=== PATIENT | female | born 1960 | race Caucasian/White ===

== ENCOUNTER 2022-06-19 08:15 | Outpatient (RCR) | payer OTHER, SELFPAY | END 2022-08-23 11:22 | disposition home or self-care (01) | PROVIDERS: PCP Internal Medicine; Visit Provider Orthopaedic Surgery | DX: M25.552 Pain in left hip (principal); Z96.642 Presence of left artificial hip joint; Z51.89 Encounter for other specified aftercare | CPT/HCPCS: 97110 ==

== ENCOUNTER 2022-08-16 17:10 | Outpatient (CLI) | payer OTHER, SELFPAY ==
[2022-08-16 10:23] LABS: Chloride* 104 mmol/L (96-114); Sodium* 138 mmol/L (135-149)
[2022-08-16 10:24] LABS: Potassium* 3.5 mmol/L (3.6-5.1)
[2022-08-16 10:26] LABS: Cholesterol* 186 mg/dL (90-199); Creatinine* 0.6 mg/dL (0.5-1.5); Estimated Glomerular Filt Rate 100 ml/min
[2022-08-16 10:27] LABS: Blood Urea Nitrogen* 15 mg/dL (7-30); Calcium* 9.3 mg/dL (8.4-10.6); Carbon Dioxide* 26 mmol/L (20-32); Glucose* 97 mg/dL (60-115); HDL Cholesterol* 62 mg/dL (>=50); LDL Cholesterol Calculated 107 mg/dL (<100); Triglycerides* 83 mg/dL (40-149)
== END 2022-08-16 17:11 | disposition home or self-care (01) ==
PROVIDERS: PCP Internal Medicine; Visit Provider Internal Medicine
DX: E78.5 Hyperlipidemia, unspecified (principal); I10 Essential (primary) hypertension; E03.2 Hypothyroidism due to medicaments and other exogenous substances; F41.9 Anxiety disorder, unspecified
CPT/HCPCS: 80048; 80061; 84443

== ENCOUNTER 2022-11-07 07:04 | Outpatient (CLI) | payer OTHER, SELFPAY ==
--- NOTE | 2022-11-07 07:15 | CRLHL7_ITS ---
For Patients: As a result of the Century Cures Act, medical imaging exams and procedure reports are released immediately into your electronic medical record. You may view this report before your referring provider. If you have questions, please contact your health care provider. Indication: Pancreatic cyst Technique: MRI of the abdomen with and without contrast,DOTAREM 15 cc IV Comparison: CT dated September 14, 2021 Findings: Normal liver size and contour. No fat or iron deposition within the liver. No suspicious hepatic lesions. Hepatic and portal veins appear patent. Normal gallbladder. No biliary dilatation. No significant abnormality of the adrenal glands, kidneys, spleen or duodenum. Small hiatal hernia. The punctate hypoattenuating focus seen in the pancreatic body on prior CT is not identified on MRI. There are no significant cystic or solid lesions within the pancreas. The pancreatic duct is normal in caliber. There is a pancreatic divisum (series 9, image [id number]). Normal course and caliber of the abdominal aorta and the IVC. Atherosclerotic disease of the abdominal aorta. The aortic side branches appear patent. There is no lymphadenopathy. The body wall and bones are grossly unremarkable. Impression: No cystic pancreatic lesion or concerning pancreatic abnormality identified. The tiny hypoattenuating focus in the pancreatic body mentioned in the prior CT report may have represented interdigitating mesenteric fat. Dictated by Amor Abernathy MD @ 11/10/2022 6:58:48 PM (Electronically Signed)
== END 2022-11-07 07:05 | disposition home or self-care (01) ==
LOC: MRI 07:05
PROVIDERS: PCP Internal Medicine; Visit Provider Internal Medicine
DX: K86.2 Cyst of pancreas (principal)
CPT/HCPCS: 74183; A9575

== ENCOUNTER 2022-12-18 08:03 | Outpatient (CLI) | payer OTHER, SELFPAY ==
--- NOTE | 2022-12-18 08:15 | CRLHL7_ITS ---
For Patients: As a result of the Century Cures Act, medical imaging exams and procedure reports are released immediately into your electronic medical record. You may view this report before your referring provider. If you have questions, please contact your health care provider. BILATERAL SCREENING MAMMOGRAM WITH COMPUTER-AIDED DETECTION AND TOMOSYNTHESIS TECHNIQUE: CC and MLO views were obtained. These mammographic images have been obtained using full-field digital technique. These mammographic images were interpreted with the benefit of computer-aided detection. Breast Tomosynthesis was used in this interpretation. COMPARISON FILM: Diag rt 11/17/20, 11/01/20, 01/12/19 [facility]. FINDINGS: There are scattered areas of fibroglandular density IMPRESSION: There is no radiographic evidence for malignancy. ASSESSMENT: BI-RADS Category 1: Negative RECOMMENDATION: Routine screening mammogram in 1 year. A lay language report of this examination will be provided to the patient. Dipesh Charles M.D. Diagnostic Radiologist [email or web address] CASPER/Dictated by: Dipesh Charles MD @ 12/18/2022 12:26:00 PM (Electronically Signed)
== END 2022-12-18 08:04 | disposition home or self-care (01) ==
PROVIDERS: PCP Internal Medicine; Visit Provider Internal Medicine
DX: Z12.31 Encounter for screening mammogram for malignant neoplasm of breast (principal)
CPT/HCPCS: 77063; 77067

== ENCOUNTER 2023-07-31 13:15 | Outpatient (RCR) | payer OTHER, MEDICARE, SELFPAY | END 2023-10-08 10:50 | disposition home or self-care (01) | PROVIDERS: PCP Internal Medicine; Visit Provider Orthopaedic Surgery | DX: M75.52 Bursitis of left shoulder (principal); Z51.89 Encounter for other specified aftercare | CPT/HCPCS: 97110; 97140; 97161 ==

== ENCOUNTER 2023-09-19 08:25 | Outpatient (CLI) | payer OTHER, MEDICARE, SELFPAY | END 2023-09-19 08:26 | disposition home or self-care (01) | LOC: NFLDREF 09-24 06:19 | PROVIDERS: PCP Internal Medicine; Referring Provider Internal Medicine; Visit Provider Internal Medicine | DX: I10 Essential (primary) hypertension (principal); E03.2 Hypothyroidism due to medicaments and other exogenous substances; E78.5 Hyperlipidemia, unspecified | CPT/HCPCS: 80048; 80061; 82306; 84439; 84443 ==

== ENCOUNTER 2023-10-30 13:47 | Outpatient (CLI) | payer OTHER, MEDICARE, SELFPAY ==
--- NOTE | 2023-10-30 14:00 | CRLHL7_ITS ---
For Patients: As a result of the Century Cures Act, medical imaging exams and procedure reports are released immediately into your electronic medical record. You may view this report before your referring provider. If you have questions, please contact your health care provider. DXA BONE MINERAL DENSITY STUDY Current height (in): 62.0. Weight (lb): 170.0. Menopause age: 38. Ethnicity: White. Reason for exam: Screening. Asymptomatic menopausal state. 1. Have you had a previous hip or vertebral fracture? No. 2. Have you had any fractures during your adult life which did not result from significant trauma (e.g., auto accident)? No. 3. Did either of your parents have a hip fracture? No. 4. Do you smoke? No. 5. Have you ever taken Glucocorticoids? No. 6. Do you have rheumatoid arthritis? No. 7. Do you have secondary osteoporosis? No. 8. Do you drink 3 or more alcoholic drinks per day? No. 9. Are you being treated for osteoporosis? No. 10. Have you ever taken any of the following medications: Actonel, Evista, Fosamax, Miacalcin, Reclast, Boniva, Forteo, HRT (i.e. estrogen/hormone therapy), Protelos, Prolia, Vitamin D, Calcium, other ??? please specify. ANSWER: Yes, vitamin D. 11. Do you have any of the following medical conditions: Anorexia or bulimia, asthma or emphysema, end stage renal disease, hyperparathyroidism, any seizure disorders, cancer, inflammatory bowel diseases, hysterectomy, other ??? please specify. ANSWER: No. 12. What was your maximum height (inches)? 62. 13. Do you perform weight bearing exercise regularly? No. 14. Do you regularly consume dairy products? Yes. 15. Do you drink caffeinated beverages? Yes. 16. At what age did your period start? 9. 17. Are you premenopausal? No. 18. How many full-term pregnancies have you had? 0. 19. Have you ever missed your period for more than 6 months in a row (not including or menopause)? No. TECHNIQUE: Bone mineral density study was performed using the payever. FINDINGS: The results of the study expressed as bone mineral density (BMD) are as follows: Lumbar spine L1 to L4: BMD: 0.938 g/cm2. T-score: -1.0. Z-score: 0.8. Neck Right: BMD: 0.748 g/cm2. T-score: -0.9. Z-score: 0.6. Total Right: BMD: 0.941 g/cm2. T-score: 0.0. Z-score: 1.2. IMPRESSION: Normal bone density. Dipesh Charles M.D. Diagnostic Radiologist [email or web address] Transcribed: 9:35 am DW/Dictated by: Dipesh Charles MD @ 11/03/2023 6:38:00 AM (Electronically Signed)
== END 2023-10-30 13:48 | disposition home or self-care (01) ==
LOC: RAD 13:48
PROVIDERS: PCP Internal Medicine; Visit Provider Internal Medicine
DX: Z13.820 Encounter for screening for osteoporosis (principal); Z78.0 Asymptomatic menopausal state
CPT/HCPCS: 77080

== ENCOUNTER 2024-02-24 09:55 | Outpatient (CLI) | payer MEDICARE, BC, SELFPAY | END 2024-02-24 09:56 | disposition home or self-care (01) | LOC: NFLDREF 14:49 | PROVIDERS: PCP Internal Medicine; Visit Provider Internal Medicine | DX: Z01.818 Encounter for other preprocedural examination (principal) | CPT/HCPCS: 80048 ==

== ENCOUNTER 2024-03-11 09:02 | Day surgery (SDC) | payer MEDICARE, BC, SELFPAY ==
[2024-03-11] VITALS (13 sets, daily range): BP systolic 117–159; BP diastolic 58–96; PULSE 65–96; RESP 14–18; TEMP 36.1–36.7; O2SAT 91–100; BMI 32.5
[2024-03-11] MEDS: MIDAZOLAM HCL 1 MG/ML inj IVP (07:52)
[2024-03-11] MEDS: CELECOXIB 200 MG CAPSULE PO (07:52)
[2024-03-11] MEDS: fentaNYL 100 MCG/2 ML inj IVP (07:52)
[2024-03-11] MEDS: OXYCODONE (CR) 10 MG TAB.ER.12H PO (07:52)
[2024-03-11] MEDS: ACETAMINOPHEN 500 MG TABLET 1000 MG PO (07:52)
[2024-03-11] MEDS: LACTATED RINGERS 1000 ML 1,000 ML 100 ML IV ×2 (07:55→10:55)
--- OUTSIDE RECORDS SUMMARY | 2024-03-11 09:03 | XMS_ITS | Referral Summary ---
Author Name Unknown Organization [facility] Address [address] [place] [id number] Care Team Providers Care Gardening Instructor Name Role Phone Aleida Perdomo MD Primary Care Provider [phone] Allergies Active Allergy Reactions Criticality Noted Date Comments Sulfa Antibiotics Nausea and Vomiting,Rash,Cough Low 01/27/2021 Medications Medication Sig Dispensed Refills Start Date End Date Status LORazepam (ATIVAN) 1 MG tablet Take 0.25-1 mg by mouth 2 times daily Active triamterene-HCTZ (MAXZIDE-25) 37.5-25 MG tablet Take 1 tablet by mouth daily Active valACYclovir (VALTREX) 500 MG tablet Take 500 mg by mouth 2 times daily Active venlafaxine (EFFEXOR) 75 MG tablet Take 75 mg by mouth daily Active vitamin C (ASCORBIC ACID) 250 MG TABS tablet Take 250 mg by mouth daily Active atorvastatin (LIPITOR) 10 MG tablet Take 20 mg by mouth daily Active lisinopril (ZESTRIL) 10 MG tablet Take 10 mg by mouth daily Active levothyroxine (SYNTHROID/LEVOTHROID ) 75 MCG tablet Take 75 mcg by mouth daily Active aspirin 81 MG EC tablet Take 81 mg by mouth daily Active omega 3 1000 MG CAPS Take 1 capsule by mouth daily Active erythromycin (ROMYCIN) 5 MG/GM ophthalmic ointmentIndications:P tosis of both eyelids Apply topically 3 times daily Apply thin ribbon to upper eyelid crease incisions 3 x per day 3.5 g 1 01/30/2021 Active Social History Tobacco Use Types Packs/Day Years Used Date Smoking Tobacco: Former Smokeless Tobacco: Never Comments:quit 18 years ago Adolescent Education Answer Date Record ed Getting School Help Needed Not on file 08/31 Sex and Gender Information Value Date Recorded Sex Assigned at Not on file Gender Identity Not on file Sexual Orientation Not on file Last Filed Vital Signs Vital Sign Reading Time Taken Comments Blood Pressure 113/76 01/30/2021 9:20 AM TECHNICAL MAINTENANCE TECHNICIAN Pulse 70 01/30/2021 9:00 AM TECHNICAL MAINTENANCE TECHNICIAN Temperature 36.2 ??C (97.1 ??F) 01/30/2021 8:31 AM CS T Respiratory Rate 14 01/30/2021 9:20 AM TECHNICAL MAINTENANCE TECHNICIAN Oxygen Saturation 99% 01/30/2021 9:20 AM TECHNICAL MAINTENANCE TECHNICIAN Inhaled Oxygen Concentration - - Weight 72.1 kg (159 lb) 01/30/2021 6:00 AM TECHNICAL MAINTENANCE TECHNICIAN Height 157.5 cm (5' 2) 01/30/2021 6:00 AM TECHNICAL MAINTENANCE TECHNICIAN Body Mass Index 29.08 01/30/2021 6:00 AM TECHNICAL MAINTENANCE TECHNICIAN Plan of Treatment Not on file Care Teams Gardening Instructor Relationship Specialty Start Date End Date Aleida Perdomo MD [facility] & [address] [address] PCP - General Internal Medicine 01/16/21
--- OUTSIDE RECORDS SUMMARY | 2024-03-11 09:03 | XMS_ITS | Clinical Summary ---
Author Name Unknown Organization [facility] Address [address] [place] [address] Care Team Providers Care Office Services Coordinator Name Role Phone Aleida Perdomo MD Primary Care Provider [phone] Allergies Active Allergy Reactions Criticality Noted Date [...] Comments Blood Pressure 113/76 01/30/2021 9:20 AM FORMS DESIGNER Pulse 70 01/30/2021 9:00 AM FORMS DESIGNER Temperature 36.2 ??C (97.1 ??F) 01/30/2021 8:31 AM CS T Respiratory Rate 14 01/30/2021 9:20 AM FORMS DESIGNER Oxygen Saturation 99% 01/30/2021 9:20 AM FORMS DESIGNER Inhaled Oxygen Concentration - - Weight 72.1 kg (159 lb) 01/30/2021 6:00 AM FORMS DESIGNER Height 157.5 cm (5' 2) 01/30/2021 6:00 AM FORMS DESIGNER Body Mass Index 29.08 01/30/2021 6:00 AM FORMS DESIGNER Plan of Treatment Health Maintenance Due Date Last Done Comments ADVANCE CARE PLANNING 1958 ANNUAL REVIEW OF HM ORDERS 1958 CT COLONOGRAPHY 1958 DEXA 1958 FIT 1958 FLEX SIG 1958 GLUCOSE 1958 LIPID 1958 MAMMO SCREENING 1958 TSH W/FREE T4 REFLEX 1958 sDNA (Cologuard) 1958 COLONOSCOPY 1968 COLORECTAL CANCER SCREENING 1968 HIV SCREENING 1973 HEPATITIS C SCREENING 1976 LUNG CANCER SCREENING 2008 DTAP/TDAP/TD IMMUNIZATION (1 - Tdap) 01/06/2016 01/05/2016 RSV VACCINE ( & 60+) (1 - 1-dose 60+ series) 2018 FALL RISK ASSESSMENT 2023 MEDICARE ANNUAL WELLNESS VISIT 2023 Pneumococcal Vaccine: 65+ Years (1 of 1 - PCV) 2023 COVID-19 Vaccine (3 - 2022- season) 2023 12/12/2020, 11/22/2020 INFLUENZA VACCINE (#1) 2023 9, 12/15/2018, 10/01/2017, Additional history exists PHQ-2 (once per calendar year) 2023 ZOSTER IMMUNIZATION Completed 03/30/2019, 9 HPV IMMUNIZATION Aged Out No longer e ligible based on patient's age to complete this topic IPV IMMUNIZATION Aged Out No longer e ligible based on patient's age to complete this topic MENINGITIS IMMUNIZATION Aged Out No l onger eligible based on patient's age to complete this topic RSV MONOCLONAL ANTIBODY Aged Out No l onger eligible based on patient's age to complete this topic Care Teams Office Services Coordinator Relationship Specialty Start Date End Date Aleida Perdomo MD [address] [address] PCP - General Internal Medicine 01/16/21
[2024-03-11] MEDS: SODIUM CHLORIDE 0.9 % (FLUSH) 10 ML SYRINGE IVF (09:36)
--- NOTE | 2024-03-11 09:45 | SUR.PREOP ---
TIME?OUT:?0935 PT/RN/MDA?VERIFICATION?OF?SURGICAL?SITE,?PROCEDURE,?AND?CONSENT OBTAINED?PRIOR?TO?INVASIVE?PROCEDURE.0935left shoulder kelsietr [facility]
[2024-03-11] MEDS: CEFAZOLIN 2 GM INJ IVP (10:15)
[2024-03-11] MEDS: EPINEPHrine 1 MG in SODIUM CHLORIDE IRRIG SOLUTION 3,000 ML 9003 MG IRRIGATION ×3 (10:45→11:40)
--- NOTE | 2024-03-11 11:46 | P.ORPRC_ITS ---
Procedure Note Date of procedure: 03/11/24 Procedure: PREOPERATIVE DIAGNOSIS: Left shoulder rotator cuff tear, AC joint arthrosis POSTOPERATIVE DIAGNOSIS: Left shoulder rotator cuff tear, AC joint arthrosis NAME OF OPERATION: Left shoulder arthroscopic subacromial decompression, distal clavicle excision, mini open rotator cuff repair SURGEON: Dom Rodriguez MD BROACHING MACHINE REPAIRER: Felicita Acosta PA-C ANESTHESIA: Supraclavicular block plus general endotracheal ESTIMATED BLOOD LOSS: 20 mL COMPLICATIONS: None SPECIMENS: None DRAINS: None PREOPERATIVE ANTIBIOTICS: Ancef 2 grams INDICATIONS: The patient is a 63-year-old with a history of left shoulder pain secondary to the above diagnoses. Despite appropriate non operative management, they continue to have symptoms. Operative intervention was recommended. The risks, benefits and expected outcomes were discussed in detail. These included but were not limited to: Infection, bleeding, injury to blood vessel or nerve, venous thromboembolism. All questions were answered to their satisfaction. PROCEDURE: A supraclavicular block was placed by Anesthesia. General anesthesia was administered. The patient was placed in the high beach chair position. The left shoulder was prepped and draped in the usual sterile fashion. The glenohumeral joint was infiltrated with 20 mL of normal saline with epinephrine. The posterior portal was established, the arthroscope was introduced. The anterior portal was established, Diagnostic arthroscopy was performed with findings as follows: The biceps and biceps anchor are intact. The anterior, posterior and superior labrum are normal. Articular surfaces on the humeral head and glenoid are normal. There are no loose bodies. There is a small, high-grade partial-thickness tear of the undersurface of the insertion of the supraspinatus. There is some longitudinal splitting of the deep surface of the subscap. The superior glenohumeral ligament is quite degenerative. The undersurface of the supraspinatus and subscap were debrided with the shaver The arthroscope was placed in the subacromial space, the lateral portal was established. The Arthrex Cranberry was used to dissect the acromion free. The CA ligament was recessed off the anterior acromion, the AC joint was exposed. The acromioplasty was performed with the bur in the posterior portal. The bur was then placed in the lateral portal and the lateral and anterior aspect of the acromion were resected. The undersurface of the distal clavicle was resected through the lateral portal. Finally, the bur was placed in the anterior portal and the remainder of the distal clavicle was resected for a total of 10 mm. An accessory anterolateral portal was placed. The subacromial/subdeltoid bursa was aggressively debrided. The bursal surface of the rotator cuff is intact. Arthroscopic instruments were removed. The accessory anterolateral portal was extended proximally and distally, subcutaneous dissection was taken with electrocautery to the deltoid. The deltoid was divided in line with its fibers. The static retractor was placed. The subacromial/subdeltoid bursa was debrided with the Schafer scissors. The few remaining fibers of the bursal surface of the insertion of supraspinatus were released with the scalpel. This was taken posterior, to the anterior aspect of the infraspinatus which is intact. It was taken medial to the biceps to include release of the superior glenohumeral ligament and superior aspect of subscap insertion. The greater and lesser tuberosities were debrided to punctate bleeding bone using the arthroscopic bur. An Arthrex BioComposite corkscrew anchor was placed just medial to the biceps in the superior aspect of lesser tuberosity. All 4 limbs were passed through the upper border of the subscap with the scorpion. An Arthrex BioComposite SwiveLock anchor was placed in the greater tuberosity, just lateral to the biceps, just off the articular surface. Both limbs of the FiberWire and fiber tape were passed using the scorpion. A fiber link was placed in the leading edge of the rotator cuff. We tied the 2 central FiberWire sutures over the rotator cuff. We then proceeded with a lateral row SwiveLock anchor incorporating the medial row FiberTape and fiber link into the lateral row anchor. We passed the FiberWire suture in the eyelet of the lateral row anchor through the leading edge of the supraspinatus, tying it with a simple knot. Finally, we tied the 4 sutures over the anterior aspect of the subscap to complete the repair. There was a small longitudinal split in the supraspinatus, infraspinatus interval, at the musculotendinous junction. This was closed with 2 x # 2 FiberWire sutures in an interrupted, tbecws-yp-magni fashion. This provides an anatomic, watertight repair of the rotator cuff. There is no tension on the repair with the shoulder at 0? abduction. The wound was irrigated with normal saline off the pump. The deltoid was repaired with an 0 Vicryl in an interrupted [id number]-ae-ecncn fashion. Subcutaneous tissues were closed with a 3-0 Vicryl. Skin was closed with a 3-0 Monocryl in a subcuticular fashion. A dry dressing and sling were applied. Sponge and needle counts were correct x2. The patient tolerated the procedure well. There were no apparent complications. They were carefully transferred to the hospital bed and taken to the postanesthesia care unit in satisfactory condition. PLAN: The patient will be discharged to home. No active range of motion of the shoulder will be allowed for 6 weeks postoperatively. They can work on active range of motion of the elbow, wrist and fingers. They will follow up in the office next week for a wound check and an AP and transscapular Y-view of the shoulder prior to being seen.
--- NOTE | 2024-03-11 12:11 | P.NB_ITS ---
Nerve Block Nerve Block Time Seen by Provider: 09:41 Date Seen: 03/11/24 Type of block requested by surgeon for post-operative analgesia: supraclavicular Side: left Time out performed: Yes Verification of patient name: Yes Verification of date of : Yes Site marking: site marked Name of person performing procedure: Samuel Continuous monitoring Was continuous monitoring of O2 sat, B/P, engagement lead, recorded every 15 minutes?: Yes Procedure Checklist: sterile prep, needles and gloves Ultrasound guided. Images saved: Yes Medications given in 5ml increments after negative aspiration: Ropivicaine %: 0.5 mL: 20 Needle gauge: 22 Decadron (mg): 10 Precedex (mcg): 25 Patient tolerated procedure well: Yes Block Charges Block Charge (with Pro Fee): Brachial Plexus Use of Ultrasound Machine for Block: Yes- US Guidance/pain block
--- NOTE | 2024-03-11 12:12 | W.ANESCHARGE ---
Anesthesia Charges Start Date/Time Anesthesia Start Date: 03/11/24 Anesthesia Start Time: 10:00 Stop Date/Time Anesthesia Stop Date: 03/11/24 Anesthesia Stop Time: 12:16
--- NOTE | 2024-03-11 12:18 | W.ANESCHARGE ---
Anesthesia Charges Start Date/Time Anesthesia Start Date: 03/11/24 Anesthesia Start Time: 10:00 Stop Date/Time Anesthesia Stop Date: 03/11/24 Anesthesia Stop Time: 12:16
--- NOTE | 2024-03-11 12:42 | SUR.PHASEI ---
patient meets pacu d/c criteria
== END 2024-03-11 13:28 | disposition home or self-care (01) ==
LOC: OR 09:02
PROVIDERS: PCP Internal Medicine; Visit Provider Orthopaedic Surgery
PROC: (CPT 23412; principal; 2024-03-11 10:15)
DX: M75.102 Unspecified rotator cuff tear or rupture of left shoulder, not specified as traumatic (principal); M19.012 Primary osteoarthritis, left shoulder; G89.18 Other acute postprocedural pain
CPT/HCPCS: 29826; 29824; 23412; 01630; 64415; 76942; A9270; C1713; J0171; J0330; J0690; J1100; J2250; J2371; J2405; J2704; J2795; J3010; J7120

== ENCOUNTER 2024-05-31 10:30 | Outpatient (RCR) | payer MEDICARE, BC, SELFPAY ==
--- NOTE | 2024-05-31 11:03 | PT.OPDNX ---
PT [facility] Outpatient Daily Note PROGRESS NOTE REQUIRES SIGNATURE PT [facility] Outpatient Daily Note Start: 04/23/24 07:44 Freq: Status: Active Protocol: Document 05/31/24 07:25 SEA (Rec: 05/31/24 11:02 SEA [email or web address]) E-signed By Carlos Torres DPT PT OP Daily Progress Note Visit Information Note Type Daily Note,Recert/Progress Note Visit Number [id number] Insurance Information Recert Due Date 08/29/24 Insurance Name Medicare B Medical Diagnosis left shoulder arthroscopic SAD , DCE, and mini open RCR (03/11)~ 8.5 weeks post op Treating Diagnosis left shoulder pain stiffness of shoulder muscle weakness Referring MD rhoda winter Subjective Subjective Olga comes into clinic feeling like shoulder is doing well overall without much issue. feels Pain Comments 5-8/10 worst with movement 0/10 rest Precautions Treatment Precautions/Contraindications anxiety htn hup replacements progress AROM Home Exercise Home Exercise Comments Access Code: [email or web address] URL: [email or web address] Room Choice/ Date: 05/05/2024 Objective Other/Pertinent Objective SHOULDER AROM WNL on R Flexion: L 159 Abduction: L 151 Internal Rotation: L T10 External Rotation: L 58 Functional Test Performed & Score Total SPADI Score: 28 / 130 = 21.5 %-05/31/24 Patient Instructed in Risks/Benefits Yes Therapeutic Exercise Therapeutic Exercise Minutes (minutes) 32 Therapeutic Exercise: To Restore ube x 5 min Functional Status wall walks flexion x 10, scaption x 10 abd x 10 #1 scaption 2x 10-15, 1#1-2 cabinet lifts 3x 10 #1 alphabet 2x 15 Treatment Minutes Untimed Code Treatment Minutes 5 Timed Code Treatment Minutes 32 Total Treatment Time 37 Billing Units Therapeutic Exercise Units 2 Assessment/Impression Assessment/Impression Patient is a 64 year old female that presents with L RCR. Patient reports 90% improvement with skilled physical therapy services. Scoring SPADI Score: 28 / 130 = 21.5 %-05/31/24. Patient has shown improvement in PT demonstrating decreased/ controlled pain, increased range of motion, increased strength, and increased tolerance to activity. Patient continues to present with low to moderate level pain, decreased shoulder abduction AROM, decreased strength, and decreased tolerance activities that require appointments away from the body. Patient would benefit from continued skilled PT services to address these issues and to maximize function. Plan of Care Physical Therapy Goals GOALS Pt will be independent with HEP within 12-14 weeks to allow for independence and continued improvement past formal therapy nm Patient will demonstrate/ report ability to reach to 150 + degrees shoulder flexion and abduction with pain level <1/ 10, to allow for tip printer, hygiene, work within 12-14 weeks-met Pt will be able to demonstrate / report ability to lift #15- 20 from floor to counter height without pain within 12- 14 weeks, for household and work activity. NM Daily Plan of Care Continue per POC Discharge Note Date of First Visit for Therapy 04/23/24 Initial Primary Functional Limitations lifting reaching Initial Pain Level 8/10
== END 2024-09-28 23:59 | disposition home or self-care (01) ==
PROVIDERS: PCP Internal Medicine; Visit Provider Physician Assistant Surgical
DX: Z98.890 Other specified postprocedural states (principal); M25.512 Pain in left shoulder; M25.619 Stiffness of unspecified shoulder, not elsewhere classified; Z51.89 Encounter for other specified aftercare
CPT/HCPCS: 97110; 97140; 97161

== ENCOUNTER 2024-08-27 12:26 | Emergency (ER) | payer MEDICARE, BC, SELFPAY ==
[2024-08-27 12:30] VITALS: BP 133/88; PULSE 106; RESP 18; TEMP 35.7; O2SAT 95; BMI 32.0
--- NOTE | 2024-08-27 12:48 | ED_ITS ---
HPI - General Adult General Date Seen: 08/27/24 Chief complaint: Lower Extremity Swelling Stated complaint: leg weakness Time Seen by Provider: 08/27/24 12:27 Source: patient Mode of arrival: ambulatory Limitations: no limitations History of Present Illness HPI narrative: Patient is a 64-year-old female presenting to the emergency department for leg weakness. She states she has been chronic right leg and foot pain for the past month. She has also noticed increased swelling to the right foot mostly on the dorsal aspect. Pain seems to be on dorsal aspect and medial aspect of the foot. Pain is only there with movement and she states she spends long hours work standing. This also started to have some pain in her left foot and right hip. She was seen previously for it and was given steroids for possible tendinitis about 2 months ago. She had some improvements at that time but symptoms returned. She now states for the past 2 days she was feeling diaphoretic, fatigued, lightheaded and overall not feeling well. She is concerned could be heart related her she came to emergency department for evaluation. No history of heart disease. Denies any fevers. Denies chest pain, shortness of breath, abdominal pain, nausea/vomiting, headache. 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 Related Data Home Medications ?Medication ?Instructions ?Recorded ?Confirmed yssxbutg-[id number] 8 mg-folic 400 1 tab PO QDAY 07/24/23 08/04/24 mcg-K 50 mcg-lutein 300 mcg tablet (Centrum Silver Women) cholecalciferol (vitamin D3) 25 25 mcg PO QDAY 09/25/23 08/04/24 mcg (1,000 unit) capsule Previous Rx's ?Medication ?Instructions ?Recorded levothyroxine 75 mcg tablet 75 mcg PO QDAY #90 tabs 11/28/23 triamterene 37.5 1 tab PO DAILY #90 tabs 11/28/23 mg-hydrochlorothiazide 25 mg tablet venlafaxine 75 mg capsule,extended 75 mg PO DAILY #90 caps 11/28/23 release 24 hr lorazepam 1 mg tablet 0.5 mg (1/2 x 1 mg) PO .Bedtime 06/21/24 #30 tabs valacyclovir 500 mg tablet 500 mg PO DAILY #90 tabs 07/23/24 prednisone 20 mg tablet 20 mg PO BID #10 tabs 08/04/24 atorvastatin 20 mg tablet 20 mg PO .Bedtime #90 tabs 08/13/24 valsartan 40 mg tablet 40 mg PO QDAY #90 tabs 08/13/24 Allergies Allergy/AdvReac Type Severity Reaction Status Date / Time Sulfa (Sulfonamide Allergy Verified 08/27/24 12:30 Antibiotics) Review of Systems Status of ROS: Reports: 10 or more systems reviewed and unremarkable except as noted in History and below PFSH PFSH Medical History History of Graves' disease ?Z86.39 - Personal history of other endocrine, nutritional and metabolic disease (ICD-10) History of diverticulitis (02/17/19) ?Z87.19 - Personal history of other diseases of the digestive system (ICD-10) History of Clostridioides difficile infection (03/03/19) ?Z86.19 - Personal history of other infectious and parasitic diseases (ICD- 10) Surgical History History of arthroscopy of left shoulder (03/11/24) ?Z98.890 - Other specified postprocedural states (ICD-10) History of total hip replacement (05/09/22) ?Z96.649 - Presence of unspecified artificial hip joint (ICD-10) History of laparoscopy ?Z98.890 - Other specified postprocedural states (ICD-10) History of fracture of radius (05/09/15) ?Z87.81 - Personal history of (healed) traumatic fracture (ICD-10) History of esophagogastroduodenoscopy (EGD) (09/29/08) ?Z98.890 - Other specified postprocedural states (ICD-10) History of blepharoplasty (01/2021) ?Z98.890 - Other specified postprocedural states (ICD-10) History of biopsy ?Z98.890 - Other specified postprocedural states (ICD-10) History of appendectomy (08/2021) ?Z90.49 - Acquired absence of other specified parts of digestive tract (ICD- 10) Social History Smoking Status: Former smoker What tobacco products do you use: cigarettes Smoking quit date/years: >15 years ago Do you use any of these nicotine containing products: None Second hand tobacco smoke exposure: No How often do you have a drink containing alcohol: monthly or less Alcohol type: beer How many standard drinks containing alcohol do you have on a typical day: 1 or 2 How often do you have six or more drinks on one occasion: Never AUDIT-C Alcohol total score: 1 Non-prescribed substance use: denies use Caffeine: Yes Little interest or pleasure in doing things: not at all Feeling down, depressed, or hopeless: not at all Are you using contraception or practicing any form of control: No Exam Narrative: Exam Narrative: Const: Well-nourished, Well-developed, in mild distress Eyes: PERRL, no conjunctival injection, and symmetrical lids HENT: Atraumatic external nose and ears. Moist mucous membranes. Neck: Symmetric, trachea midline, No thyromegaly. CVS: RRR, No murmurs or gallops. Peripheral pulses 2+ and equal in all extremities RESP: Unlabored respiratory effort. Clear to auscultation bilaterally. GI: Nontender/Nondistended, No rebound or guarding. MSK:Extremities w/o deformity, Normal Active ROM, some mild tenderness to the dorsal aspect of the right foot into the 2nd and 3rd toes. Mild tenderness noted to the plantar aspect of the right foot just proximal to the base of the great toe Skin: Warm, Dry. No rashes or lesions. Neuro: Normal Muscle tone, No focal neurological deficits. Psych: Awake, Alert, & Oriented x3. Appropriate mood and affect. Const: Vital Signs, click to edit/add: Vital Signs - 24 hr 08/27/24 12:30 Temperature 96.2 F L Pulse Rate [Pulse Oximeter] 106 H Respiratory Rate 18 Blood Pressure [Ri ght Upper Arm] 133/88 Pulse Oximetry 95 Oxygen Delivery Me thod Room Air Course Vital Signs Vital signs: Initial Vital Signs Temperature 96.2 F L 08/27/24 12:30 Temperature Source Temporal Artery Scan 08/27/24 12:30 Pulse Rate 106 H 08/27/24 12:30 Pulse Rhythm Regular 08/27/24 12:30 Respiratory Rate 18 08/27/24 12:30 Blood Pressure 133/88 08/27/24 12:30 Blood Pressure Mean 103 08/27/24 12:30 Blood Pressure Position Sitting 08/27/24 12:30 Pulse Oximetry 95 08/27/24 12:30 Oxygen Delivery Method Room Air 08/27/24 12:30 Vital Signs Temperature 96.2 F L 08/27/24 12:30 Pulse Rate 106 H 08/27/24 12:30 Respiratory Rate 18 08/27/24 12:30 Blood Pressure 133/88 08/27/24 12:30 Pulse Oximetry 95 08/27/24 12:30 Oxygen Delivery Method Room Air 08/27/24 12:30 Temperature 96.2 F L 08/27/24 12:30 Pulse Rate 106 H 08/27/24 12:30 Respiratory Rate 18 08/27/24 12:30 Blood Pressure 133/88 08/27/24 12:30 Pulse Oximetry 95 08/27/24 12:30 Oxygen Delivery Method Room Air 08/27/24 12:30 Medical Decision Making MDM Narrative Medical decision making narrative: Patient is a 64-year-old female presenting to emergency department for multiple complaints. She is having some right lower extremity pain had seems to have been chronic over the past month. Steroids have helped previously but she does not want more steroids at this time. Offered her Toradol for pain management but she refused and states right now she was her to her Tylenol. She really had x-rays of this extremity with no abnormality seen I believe she is best suited to follow-up with orthopedics. She is also concerned she quit having his cardiac issues because she being diaphoretic, fatigued, lightheaded. While this all could be related to a viral syndrome I will do a COVID/flu, BMP, CBC, EKG and troponin. Also been ordered TSH with reflex T4 is she does have history of hypothyroidism. Lab work all returned showing no concerning abnormalities. EKG shows no concerning findings. She is feeling well at this time. I believe she is safe for discharge she is agreeable to this plan. Lab Data Labs: Lab Results 08/27/24 08/27/24 08/27/24 Range/Units 12:46 12:53 12:58 WBC 5.53 (4.50-11.00) K/uL RBC 4.11 (4.00-5.20) m/uL Hgb 13.2 (12.0-16.0) gm/dL Hct 38.5 (33.0-51.0) % MCV 94 (80-100) fL MCH 32 (26-34) pg MCHC 34 (32-36) gm/dL RDW Coeff of Whitney 13.2 (11.5-15.5) % Plt Count 267 (140-440) K/uL Neut % (Auto) 58.8 (42.0-72.0) % Lymph % (Auto) 32.5 (20-44) % Giles % (Auto) 6.9 (0.0-11.0) % Eos % (Auto) 1.4 (0.0-7.0) % Baso % (Auto) 0.4 (0.0-3.0) % Neut # (Auto) 3.25 (1.7-7.0) K/uL Lymph # (Auto) 1.80 (0.90-2.90) K/uL Giles # (Auto) 0.40 (0.00-0.90) K/UL Eos # (Auto) 0.08 (0.00-0.50) K/uL Baso # (Auto) 0.02 (0.00-0.30) K/uL Abs Immat Gran (auto) 0.00 (0.00-0.30) K/uL Imm/Tot Granulo (auto) 0.0 % Sodium 138 (135-149) mmol/L Potassium 3.3 L (3.6-5.1) mmol/L Chloride 101 (96-114) mmol/L Carbon Dioxide 25 (20-32) mmol/L Anion Gap 12 (7-15) mEq/L BUN 15 (7-30) mg/dL Creatinine 0.6 (0.5-1.5) mg/dL Estimated Creat Clear 43.77 Estimated GFR 99 ml/min Glucose 95 (60-115) mg/dL Calcium 9.9 (8.4-10.6) mg/dL TSH 0.045 L (0.270-4.200) uIU/mL Free T4 1.09 (0.70-1.85) ng/dL SARS-CoV-2 (PCR) Negative SARS-CoV-2 (Negative) Influenza Type A (PCR) Negative PCR FLU A (Negative) Influenza Type B (PCR) Negative PCR FLU B (Negative) POC Troponin I 0.00 L (0.01-0.04) ng/ml ECG Data Attestation: I personally reviewed and interpreted this ECG as follows: Prior ECG tracings: available for review Interpretation: Normal sinus rhythm 3 of 80 beats per minute, normal intervals, normal axis, no ST or T-wave abnormalities. Appears similar previous EKG on file Discharge Plan Discharge Clinical Impression: Leg pain Qualifiers: Laterality: right Qualified Code(s): M79.604 - Pain in right leg Patient Disposition: Home, Self-Care Condition: Stable Instructions: Leg Pain (ED) Additional Instructions: Follow-up with [facility]. Call them at . Return for new or worsening symptoms Prescriptions: No Action Centrum Silver Women 8 mg iron-400 mcg-50 mcg tablet 1 tab PO QDAY cholecalciferol (vitamin D3) 25 mcg (1,000 unit) capsule 25 mcg PO QDAY prednisone 20 mg tablet 20 mg PO BID Qty: 10 0RF venlafaxine 75 mg capsule,extended release 24hr 75 mg PO DAILY Qty: 90 3RF triamterene-hydrochlorothiazid 37.5-25 mg tablet 1 tab PO DAILY Qty: 90 3RF levothyroxine 75 mcg tablet 75 mcg PO QDAY Qty: 90 3RF lorazepam 1 mg tablet 0.5 mg PO .Bedtime Qty: 30 2RF valacyclovir 500 mg tablet 500 mg PO DAILY Qty: 90 0RF atorvastatin 20 mg tablet 20 mg PO .Bedtime Qty: 90 0RF valsartan 40 mg tablet 40 mg PO QDAY Qty: 90 0RF Follow Up/Referrals: Aleida Perdomo MD [Primary Care Provider] - Stand Alone Forms: [facility] Info Instructions
--- OUTSIDE RECORDS SUMMARY | 2024-08-27 12:56 | XMS_ITS | Clinical Summary ---
Author Organization [facility] Address [address] [place] [address] Care Team Providers Care Director Of Epidemiology Name Role Phone Aleida Perdomo MD Primary Care Provider [phone] Allergies Active Allergy Reactions Criticality Noted Date [...] Comments Blood Pressure 113/76 01/30/2021 9:20 AM TRAVEL ASSISTANT Pulse 70 01/30/2021 9:00 AM TRAVEL ASSISTANT Temperature 36.2 ??C (97.1 ??F) 01/30/2021 8:31 AM CS T Respiratory Rate 14 01/30/2021 9:20 AM TRAVEL ASSISTANT Oxygen Saturation 99% 01/30/2021 9:20 AM TRAVEL ASSISTANT Inhaled Oxygen Concentration - - Weight 72.1 kg (159 lb) 01/30/2021 6:00 AM TRAVEL ASSISTANT Height 157.5 cm (5' 2) 01/30/2021 6:00 AM TRAVEL ASSISTANT Body Mass Index 29.08 01/30/2021 6:00 AM TRAVEL ASSISTANT Plan of Treatment Not on file Care Teams Director Of Epidemiology Relationship Specialty Start Date End Date Aleida Perdomo MD [facility] & [address] [address] PCP - General Internal Medicine 01/16/21
--- OUTSIDE RECORDS SUMMARY | 2024-08-27 12:56 | XMS_ITS | Referral Summary ---
Author Organization [facility] Address [address] [place] [address] Care Team Providers Care Bacteriology Research Assistant Name Role Phone Aleida Perdomo MD Primary Care Provider [phone] Allergies Active Allergy Reactions Criticality Noted Date [...] Comments Blood Pressure 113/76 01/30/2021 9:20 AM DISTRIBUTION SYSTEM OPERATOR Pulse 70 01/30/2021 9:00 AM DISTRIBUTION SYSTEM OPERATOR Temperature 36.2 ??C (97.1 ??F) 01/30/2021 8:31 AM CS T Respiratory Rate 14 01/30/2021 9:20 AM DISTRIBUTION SYSTEM OPERATOR Oxygen Saturation 99% 01/30/2021 9:20 AM DISTRIBUTION SYSTEM OPERATOR Inhaled Oxygen Concentration - - Weight 72.1 kg (159 lb) 01/30/2021 6:00 AM DISTRIBUTION SYSTEM OPERATOR Height 157.5 cm (5' 2) 01/30/2021 6:00 AM DISTRIBUTION SYSTEM OPERATOR Body Mass Index 29.08 01/30/2021 6:00 AM DISTRIBUTION SYSTEM OPERATOR Plan of Treatment Not on file Care Teams Bacteriology Research Assistant Relationship Specialty Start Date End Date Aleida Perdomo MD [facility] & [address] [address] PCP - General Internal Medicine 01/16/21
[2024-08-27 13:06] LABS: Basophils Absolute Auto 0.02 K/uL (0.00-0.30); Basophils Percent Auto 0.4 % (0.0-3.0); Eosinophils Absolute Auto 0.08 K/uL (0.00-0.50); Eosinophils Percent Auto 1.4 % (0.0-7.0); Hematocrit 38.5 % (33.0-51.0); Hemoglobin* 13.2 gm/dL (12.0-16.0); Lymphocytes Percent Auto 32.5 % (20-44); Mean Corpuscular HGB Conc 34 gm/dL (32-36); Mean Corpuscular Hemoglobin 32 pg (26-34); Mean Corpuscular Volume 94 fL (80-100); Monocytes Percent Auto 6.9 % (0.0-11.0); Neutrophils Absolute Auto 3.25 K/uL (1.7-7.0); Neutrophils Percent Auto 58.8 % (42.0-72.0); Platelet Count* 267 K/uL (140-440); RDW Coefficient of Variation % 13.2 % (11.5-15.5); Red Blood Count 4.11 m/uL (4.00-5.20); White Blood Count* 5.53 K/uL (4.50-11.00)
[2024-08-27 13:09] LABS: Slide Review Reflex No
[2024-08-27 13:18] LABS: Chloride* 101 mmol/L (96-114); Potassium* 3.3 mmol/L (3.6-5.1); Sodium* 138 mmol/L (135-149)
[2024-08-27 13:21] LABS: Anion Gap 12 mEq/L (7-15); Blood Urea Nitrogen* 15 mg/dL (7-30); Carbon Dioxide* 25 mmol/L (20-32); Creatinine* 0.6 mg/dL (0.5-1.5); Est. Creatinine Clearance* 43.77; Estimated Glomerular Filt Rate 99 ml/min; Glucose* 95 mg/dL (60-115)
[2024-08-27 13:22] LABS: Calcium* 9.9 mg/dL (8.4-10.6)
[2024-08-27 13:35] LABS: PCR FLU A Negative PCR FLU A (Negative); PCR FLU B Negative PCR FLU B (Negative); SARS PCR* Negative SARS-CoV-2 (Negative)
[2024-08-27 14:00] VITALS: BP 130/72; PULSE 92; RESP 18; O2SAT 97
[2024-08-27 14:14] LABS: TSH With Reflex to FT4* 0.045 uIU/mL (0.270-4.200)
[2024-08-27 15:05] LABS: Free T4 Free Thyroxine* 1.09 ng/dL (0.70-1.85)
[2024-08-27 15:17] VITALS: BP 133/88; PULSE 106; RESP 18; TEMP 35.7
== END 2024-08-27 15:18 | disposition home or self-care (01) ==
PROVIDERS: Emergency Provider Student in an Organized Health Care Education/Training Program; PCP Internal Medicine
DX: M79.661 Pain in right lower leg (principal)
CPT/HCPCS: 36415; 80048; 84439; 84443; 84484; 85025; 87631; 93005; 99283; 99284

== ENCOUNTER 2024-09-01 07:54 | Outpatient (CLI) | payer MEDICARE, BC, SELFPAY ==
--- OUTSIDE RECORDS SUMMARY | 2024-09-01 12:59 | XMS_ITS | Referral Summary ---
Author Organization [place] Address [address] [place] [address] Care Team Providers Care Quotation Checker Name Role Phone Aleida Perdomo MD Primary Care Provider [phone] Allergies Active Allergy Reactions Criticality Noted Date [...] Comments Blood Pressure 113/76 01/30/2021 9:20 AM STRIPPER PRELIMINARY Pulse 70 01/30/2021 9:00 AM STRIPPER PRELIMINARY Temperature 36.2 ??C (97.1 ??F) 01/30/2021 8:31 AM CS T Respiratory Rate 14 01/30/2021 9:20 AM STRIPPER PRELIMINARY Oxygen Saturation 99% 01/30/2021 9:20 AM STRIPPER PRELIMINARY Inhaled Oxygen Concentration - - Weight 72.1 kg (159 lb) 01/30/2021 6:00 AM STRIPPER PRELIMINARY Height 157.5 cm (5' 2) 01/30/2021 6:00 AM STRIPPER PRELIMINARY Body Mass Index 29.08 01/30/2021 6:00 AM STRIPPER PRELIMINARY Plan of Treatment Not on file Care Teams Quotation Checker Relationship Specialty Start Date End Date Aleida Perdomo MD [facility] & [address] [address] PCP - General Internal Medicine 01/16/21
--- OUTSIDE RECORDS SUMMARY | 2024-09-01 12:59 | XMS_ITS | Clinical Summary ---
Author Organization [facility] Address [address] [place] [address] Care Team Providers Care Net Application Support Specialist Name Role Phone Aleida Perdomo MD Primary Care Provider [phone] Allergies Active Allergy Reactions Criticality Noted Date [...] Comments Blood Pressure 113/76 01/30/2021 9:20 AM FISH FARM LABORER Pulse 70 01/30/2021 9:00 AM FISH FARM LABORER Temperature 36.2 ??C (97.1 ??F) 01/30/2021 8:31 AM CS T Respiratory Rate 14 01/30/2021 9:20 AM FISH FARM LABORER Oxygen Saturation 99% 01/30/2021 9:20 AM FISH FARM LABORER Inhaled Oxygen Concentration - - Weight 72.1 kg (159 lb) 01/30/2021 6:00 AM FISH FARM LABORER Height 157.5 cm (5' 2) 01/30/2021 6:00 AM FISH FARM LABORER Body Mass Index 29.08 01/30/2021 6:00 AM FISH FARM LABORER Plan of Treatment Not on file Care Teams Net Application Support Specialist Relationship Specialty Start Date End Date Aleida Perdomo MD [facility] & [address] [address] PCP - General Internal Medicine 01/16/21
== END 2024-09-01 07:55 | disposition home or self-care (01) ==
LOC: NFLDREF 12:58
PROVIDERS: PCP Internal Medicine; Referring Provider Internal Medicine; Visit Provider Internal Medicine
DX: E78.5 Hyperlipidemia, unspecified (principal); I10 Essential (primary) hypertension; E03.2 Hypothyroidism due to medicaments and other exogenous substances
CPT/HCPCS: 80048; 80061; 84443

== ENCOUNTER 2024-10-27 06:11 | Day surgery (SDC) | payer MEDICARE, BC, SELFPAY ==
[2024-10-27] VITALS (13 sets, daily range): BP systolic 122–166; BP diastolic 61–87; PULSE 65–84; RESP 10–16; TEMP 36.3–36.6; O2SAT 93–97; BMI 30.4
--- OUTSIDE RECORDS SUMMARY | 2024-10-27 06:14 | XMS_ITS | Referral Summary ---
Author Organization [facility] Address [address] [place] [address] Care Team Providers Care Biomechanical Engineer Name Role Phone Aleida Perdomo MD Primary Care Provider Allergies Active Allergy Reactions Criticality Noted Date Comments Sulfa Antibiotics Nausea and Vomiting,Rash,Cough Low 01/27/2021 Medications LORazepam (ATIVAN) 1 MG tablet Take 0.25-1 mg by mouth 2 times daily Active triamterene-HCT Z (MAXZIDE-25) 37.5-25 MG tablet Take 1 tablet [...] 10 mg by mouth daily Active levothyroxine (SYNTHROID/LEVO THROID) 75 MCG tablet Take 75 mcg by mouth daily Active aspirin 81 MG EC tablet Take 81 mg by mouth daily Active omega 3 1000 MG CAPS Take 1 capsule by mouth daily Active erythromycin (ROMYCIN) 5 MG/GM ophthalmic ointmentIndicat ions:Ptosis of both eyelids Apply topically 3 times daily Apply thin ribbon to upper eyelid crease incisions 3 x per day 3.5 g 1 Active Social History Tobacco Use Types Packs/Day Years Used Date Smoking Tobacco: Former Smokeless Tobacco: Never Comments:quit 18 years ago Adolescent Education Answer Date Record ed Getting School Help Needed Not on file 08/31 Comments No Sex and Gender Information Value Date Recorded Sex Assigned at Not on file Legal Sex Female 3:28 AM SENIOR CHEMICAL PROCESS ENGINEER Gender Identity Not on file Sexual Orientation Not on file Last Filed Vital Signs Vital Sign Reading Time Taken Comments Blood Pressure 113/76 01/30/2021 9:20 AM SENIOR CHEMICAL PROCESS ENGINEER Pulse 70 01/30/2021 9:00 AM SENIOR CHEMICAL PROCESS ENGINEER Temperature 36.2 C (97.1 F) 01/30/2021 8:31 AM SENIOR CHEMICAL PROCESS ENGINEER Respiratory Rate 14 01/30/2021 9:20 AM SENIOR CHEMICAL PROCESS ENGINEER Oxygen Saturation 99% 01/30/2021 9:20 AM SENIOR CHEMICAL PROCESS ENGINEER Inhaled Oxygen Concentration - - Weight 72.1 kg (159 lb) 01/30/2021 6:00 AM SENIOR CHEMICAL PROCESS ENGINEER Height 157.5 cm (5' 2) 01/30/2021 6:00 AM SENIOR CHEMICAL PROCESS ENGINEER Body Mass Index 29.08 01/30/2021 6:00 AM SENIOR CHEMICAL PROCESS ENGINEER Plan of Treatment Not on file Care Teams Biomechanical Engineer Relationship Specialty Start Date End Date Aleida Perdomo MD [facility] & [address] [address] PCP - General Internal Medicine 01/16/21
--- OUTSIDE RECORDS SUMMARY | 2024-10-27 06:14 | XMS_ITS | Clinical Summary ---
Author Organization [facility] Address [address] [place] [address] Care Team Providers Care Car Wash Attendant Name Role Phone Aleida Perdomo MD Primary [...] on file Legal Sex Female 3:28 AM BRIDGE BUILDER Gender Identity Not on file Sexual Orientation Not on file Last Filed Vital Signs Vital Sign Reading Time Taken Comments Blood Pressure 113/76 01/30/2021 9:20 AM BRIDGE BUILDER Pulse 70 01/30/2021 9:00 AM BRIDGE BUILDER Temperature 36.2 C (97.1 F) 01/30/2021 8:31 AM BRIDGE BUILDER Respiratory Rate 14 01/30/2021 9:20 AM BRIDGE BUILDER Oxygen Saturation 99% 01/30/2021 9:20 AM BRIDGE BUILDER Inhaled Oxygen Concentration - - Weight 72.1 kg (159 lb) 01/30/2021 6:00 AM BRIDGE BUILDER Height 157.5 cm (5' 2) 01/30/2021 6:00 AM BRIDGE BUILDER Body Mass Index 29.08 01/30/2021 6:00 AM BRIDGE BUILDER Plan of Treatment Not on file Care Teams Car Wash Attendant Relationship Specialty Start Date End Date Aleida Perdomo MD [facility] & [address] [address] PCP - General Internal Medicine 01/16/21
[2024-10-27] MEDS: SODIUM CHLORIDE 0.9 % (FLUSH) 10 ML SYRINGE IVF ×2 (06:45→09:48)
[2024-10-27] MEDS: 0.9 % SODIUM CHLORIDE 500 ML 500 ML 100 ML IV (07:00)
--- NOTE | 2024-10-27 07:30 | CRLHL7_ITS ---
For Patients: As a result of the Century Cures Act, medical imaging exams and procedure reports are released immediately into your electronic medical record. You may view this report before your referring provider. If you have questions, please contact your health care provider. Indication: Rt Tailor`s bunionectomy, 1st Metatarsophalangeal Joint cheilectomy Technique: Three fluoroscopic images of the right foot. Fluoroscopic time 15.4 seconds. IMPRESSION: Fluoroscopic guidance for surgery involving the distal 5th metatarsal and at the 1st MTP joint. Dictated by Dipesh Charles MD @ 10/27/2024 10:49:26 AM (Electronically Signed)
[2024-10-27] MEDS: CEFAZOLIN 2 GM INJ IVP (07:33)
[2024-10-27] MEDS: BUPIVACAINE 0.25% 30 ML INJECTION (07:41)
--- NOTE | 2024-10-27 08:13 | W.ANESCHARGE ---
Anesthesia Charges Start Date/Time Anesthesia Start Date: 10/27/24 Anesthesia Start Time: 07:30 Stop Date/Time Anesthesia Stop Date: 10/27/24 Anesthesia Stop Time: 09:41
--- NOTE | 2024-10-27 08:30 | SUR.OPER ---
PATIENT QUESTIONS ANSWERED SATISFACTORILY PREOPERATIVELY.? PATIENT BROUGHT TO OR #1 PER CART.? Patient positioned supine on OR #1 bed.? The perioperative?team supported arms bilaterally on arm boards.? Final approval of positioning by surgeon.
--- NOTE | 2024-10-27 09:32 | CRLHL7_ITS ---
For Patients: As a result of the Century Cures Act, medical imaging exams and procedure reports are released immediately into your electronic medical record. You may view this report before your referring provider. If you have questions, please contact your health care provider. Indication: Postop Technique: Three views right foot Comparison: 09/20/2024 IMPRESSION: Postop changes of distal 5th metatarsal osteotomy with intact hardware. Postop changes of cheilectomy at the distal 1st metatarsal. Dictated by Dipesh Charles MD @ 10/27/2024 10:50:23 AM (Electronically Signed)
--- NOTE | 2024-10-27 09:34 | W.PM.PODPROC ---
Date of Procedure: 10/27/24 Surgeon: Rob Mccormick DPM Co-Surgeon: Zenaida Rice DPM Pre-op Diagnosis: 1. Tailors bunion, right foot 2. Hallux limitus, right foot 3. 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 Hyperostosis 1st metatarsal, right foot 5. Hyperostosis 2nd cuneiform, right foot 6. Hyperostosis 2nd metatarsal, right foot Post-op Diagnosis: Same Type of Procedure: 1. Scarfette tailors bunionectomy, right [92692] 2. Cheilectomy 1st metatarsophlangeal joint, right [[id number]] 3. Partial excision 1st cuneiform, right foot [46668] 4. Partial excision 1st metatarsal, right foot [45251] 5. Partial excision 2nd cuneiform, right foot [[id number]] 6. Partial excision 2nd metatarsal, right foot [[id number]] Indications: Painful tailors bunion, hallux limitus, midfoot hyperostosis recalcitrant to numerous conservative cares. Procedure Description: The patient was identified prior to being brought back into the operating room using their name and date of as patient identifiers. The intended surgical care plan was then reviewed in detail with the patient as well as rationale for surgery, most common risks, complications, and expected recovery course. The patient was given opportunity to ask questions, which were to the best of my ability. Patient ultimately voiced no questions or concerns and agreed to proceed forward with the surgery as planned. The patient was brought from the preoperative holding area to the operating room, and placed on the operating room table in the supine positions. At this time a timeout was performed by myself and operating room staff to identify the proper patient, site and operation to be performed. A well padded pneumatic ankle tourniquet was applied to the patient's operative lower extremity. The extremity was then scrubbed, prepped and draped in the normal sterile fashion. Scarfette tailors bunionectomy, right An incision was mapped out over the dorsal lateral aspect of the right fifth metatarsophalangeal joint. A longitudinal linear incision was then made through skin. Incision was carried deep through the subcutaneous tissues taking care to retract and protect all vital neural, and vascular structures. The level of the capsule and periosteum was identified. Subcutaneous tissue was dissected free from the underlying capsular and periosteal tissues. A longitudinal linear capsular incision was made on the lateral aspect of the fifth metatarsal. The periosteum and capsule were dissected free from the underlying bone. A marking pen was used to map out the Z-osteotomy in the lateral fifth metatarsal. A sagittal saw was used to complete the osteotomy using an osteotomy guide to the distal fifth metatarsal. The capital fragment was shifted medially and temporarily fixated with 0.045 Kwires. Good apposition was confirmed via fluoroscopy. Using standard AO technique, two 2.0 screws were inserted from dorsal to plantar across the osteotomy. Good compression was noted. The lateral eminence was then resected with sagittal saw and the screws were retightened. Copious irrigation of the incision site was carried out. Cheilectomy 1st metatarsophlangeal joint, right Next, attention was drawn to the right 1st ray. The surgical incision was mapped out over the dorsal medial aspect of the first metatarsophalangeal joint. Incision was carried through skin and deepened through subcutaneous tissues, taking care to retract and protect all vital neural and vascular structures. The incision was then deepened to the capsule and periosteum overlying the first metatarsophalangeal joint where a linear capsulotomy was performed to free the dorsal, medial, and lateral aspects of the first metatarsal head and proximal phalanx base. The first metatarsal head and base of the proximal phalanx were visualized and demonstrated degenerative changes and partial thickness articular cartilage loss. The dorsal 30% of the first metatarsal head and base of the proximal phalanx was resected and the medial and lateral osteoses were removed from the surfaces of the first metatarsal head and proximal phalanx. The surgical site was thoroughly irrigated with normal saline. The capsular tissues were approximated with absorbable suture and the skin edges were then approximated without tension using nonabsorbable sutures in a simple, interrupted fashion. Partial excision 1st and 2nd cuneiform and 1st and 2nd metatarsal, right foot Attention was directed to the dorsal aspect of the right midfoot. A palpable prominence was over the dorsal 1st and 2nd tarsometatarsal joints. The dorsalis pedis pulse was identified and marked preoperatively and the incision was placed medial to this. A longitudinal linear incision was made slightly medial to the high point of the exostosis to avoid the neurovascular bundle. Dissection was carried deep, taking care to identify and retract all vital neural and vascular structures - the neurovascular bundle was retracted laterally. Dissection was carried down to the level of the deep fascia. The deep fascia was incised and retracted for reapproximation later. A rongeur was used to resect the hyperostosis which was noted to be primarily on the 1st and 2nd metatarsals and the 1st and 2nd cuneiforms. Fine debridement was then carried out using a hand rasp. This was noted to provide smooth margins between the articulating bone. This site was then copiously irrigated with normal saline solution. The deep fascia was closed with a 3-0 Vicryl. Skin was re approximated with 5-0 Nylon in a horizontal mattress type suture technique. Upon the release of the pneumatic tourniquet, immediate reperfusion of toes 1 through 5 was noted. A postoperative compressive dressing consisting of xeroform, 4 x 4's, donato, cast padding and an?LAUREN bandage was applied to the patient's operative extremity. The patient was transferred from the operating room to the post-anesthesia care unit with vital signs stable and vascular status intact to the operative?lower extremity. The patient appeared to tolerate both the procedure and anesthesia well.? Anesthesia: GETA and local Hemostasis: ankle Estimated blood loss (mL): 5 Implants: [place] 2.0mm screws 16mm x2 Specimens: none sent Disposition: PACU
--- NOTE | 2024-10-27 09:46 | W.ANESCHARGE ---
Anesthesia Charges Start Date/Time Anesthesia Start Date: 10/27/24 Anesthesia Start Time: 07:30 Stop Date/Time Anesthesia Stop Date: 10/27/24 Anesthesia Stop Time: 09:41
[2024-10-27] MEDS: HYDROmorphone 0.5 mg/0.5 ml inj IVP (09:48)
[2024-10-27] MEDS: HYDROCODONE-ACETAMIN 5-325 MG 1 TAB PO (10:29)
== END 2024-10-27 11:30 | disposition home or self-care (01) ==
PROVIDERS: PCP Internal Medicine; Visit Provider Podiatrist
PROC: (CPT 28292; principal; 2024-10-27 07:30)
PROC: (CPT 28289; 2024-10-27 07:30)
DX: M21.621 Bunionette of right foot (principal); M20.5X1 Other deformities of toe(s) (acquired), right foot; M85.871 Other specified disorders of bone density and structure, right ankle and foot
CPT/HCPCS: 28308; 28289; 28122 ×4; 01480; 73630; 76000; A9270; C1713; J0330; J0665; J0690; J1171; J2250; J2371; J2704; J3010; J7030

== ENCOUNTER 2024-12-17 13:12 | Outpatient (CLI) | payer MEDICARE, BC, SELFPAY ==
--- NOTE | 2024-12-17 13:20 | CRLHL7_ITS ---
For Patients: As a result of the Century Cures Act, medical imaging exams and procedure reports are released immediately into your electronic medical record. You may view this report before your referring provider. If you have questions, please contact your health care provider. BILATERAL SCREENING MAMMOGRAM WITH COMPUTER-AIDED DETECTION AND TOMOSYNTHESIS TECHNIQUE: CC and MLO views were obtained. These mammographic images have been obtained using full-field digital technique. These mammographic images were interpreted with the benefit of computer-aided detection. Breast Tomosynthesis was used in this interpretation. COMPARISON FILM: 12/18/22, 11/17/20, 11/01/20. FINDINGS: There are scattered areas of fibroglandular density. IMPRESSION: There is no radiographic evidence for malignancy. ASSESSMENT: BI-RADS Category 1: Negative RECOMMENDATION: Routine screening mammogram in 1 year. A lay language report of this examination will be provided to the patient. David Dougherty M.D. Diagnostic/Nuclear Medicine Radiologist [email or web address] BRUCE/ SP/Dictated by: David Dougherty MD @ 12/22/2024 9:14:00 AM (Electronically Signed)
== END 2024-12-17 13:13 | disposition home or self-care (01) ==
LOC: MAMMO 13:12
PROVIDERS: PCP Internal Medicine; Visit Provider Internal Medicine
DX: Z12.31 Encounter for screening mammogram for malignant neoplasm of breast (principal)
CPT/HCPCS: 77063; 77067

== ENCOUNTER 2025-10-11 09:11 | Outpatient (CLI) | payer MEDICARE, BC, SELFPAY | END 2025-10-11 09:12 | disposition home or self-care (01) | LOC: NFLDREF 10-14 08:55 | PROVIDERS: PCP Internal Medicine; Referring Provider Internal Medicine; Visit Provider Internal Medicine | DX: E78.5 Hyperlipidemia, unspecified (principal); I10 Essential (primary) hypertension; E03.2 Hypothyroidism due to medicaments and other exogenous substances | CPT/HCPCS: 80048; 80061; 84443 ==

== ENCOUNTER 2025-11-16 14:40 | Outpatient (CLI) | payer MEDICARE, BC, SELFPAY ==
[2025-11-16 16:42] LABS: Vitamin D 25 Hydroxy* 41 ng/mL (30-80)
== END 2025-11-16 14:41 | disposition home or self-care (01) ==
LOC: NPINS 14:42
PROVIDERS: PCP Internal Medicine; Visit Provider Physician Assistant
DX: L65.0 Telogen effluvium (principal)
CPT/HCPCS: 82306; 82728